=== PATIENT | female | born 2000 ===

== ENCOUNTER 2023-01-17 05:23 | Inpatient (IN) ==
--- NOTE | 2023-01-10 13:59 | Anesthesiology Consultation ---
Date of Service January 10, 2023 Assessment & Plan (1) Encounter for pre-operative examination: Chart Review Chart Review: manager entry initiated -COVID screening: Per PAT nursing assessment on 01/10/23. No known COVID-19 posi tive contacts or current COVID-19 related symptoms. Travel screen negative. Patient is partially vaccinated for Covid. At surgeon discretion if preop Covid testing being done. History Surgery Operation Date: 01/17/23 07:30 Proposed Procedures p Section (Delivery of Baby Through Abdominal Incision) - Trista Holt MD, FACOG Height/Weight Height: 5 ft 9 in Weight: 85.729 kg Allergies Allergy/AdvReac Type Severity Reaction Status Date / Time diphenhydramine Allergy Anaphylaxis Verified 01/10/23 12:42 [From Benadryl] nickel Allergy Rash Verified 01/10/23 13:01 Penicillins Allergy Anaphylaxis Verified 01/10/23 12:42 Medications Home Medications Medication Instructions Recorded Confirmed Last Taken witch molly 20 % topical pads See Rx Instructions topical PRN 12/14/22 01/10/23 Unknown (Preparation H (Witch Molly)) #48 ea ferrous sulfate 1 dose PO QPM 01/10/23 01/10/23 Unknown prenat.vits,julia,vba-lxhi-gippd 1 tab PO QPM 01/10/23 01/10/23 Unknown Past Medical History Medical History (Updated 01/10/23 @ 14:01 by Donna Levy PA-C) Anxiety and depression Bipolar disorder History of abnormal cervical Pap smear History of multiple miscarriages History of seizure as an History of TIA (transient ischemic attack) 2 years ago -- "htn due to emotional stress" Polyhydramnios affecting Varicella vaccination Past Family History Family History Aunt Ovarian cancer Sister Cystic fibrosis age 25 Denies family history of Breast cancer Colorectal cancer Past Surgical History Surgical History S/P section S/P dilatation and curettage Social History Smoking Status: Current every day smoker tobacco type: cigarettes Smoking cigarettes per day: 10 Do You Dip or Chew Tobacco: No Hx Alcohol Use: No Hx Substance Use: No substance use type: does not use Lab Results Anesthesia Preop Results Results Anesthesia Widget: Hgb 10.8 g/dl (12.0-16.0) L 11/23/22 Hct 31.0 % (37.0-47.0) L 11/23/22
--- NOTE | 2023-01-11 13:24 | History & Physical Report ---
Date of Service January 11, 2023 Assessment & Plan (1) Polyhydramnios affecting : (2) Previous delivery affecting , antepartum: Plan Plan repeat . Risks of the procedure were discussed with the patient including infections, bleeding, transfusion, damage to surrounding structures, need for further surgery, injury to the baby, heart attack, blood clot in legs/lungs, . Consent reviewed and signed. History of Present Illness Chief Complaint: presents for repeat c/s. Primary Care Provider: NO PCP Patient is a 22yowf with iup at 39 0/7 weeks who presents for repeat . Estimated Delivery Date Method Current WG LMP: 04/19/22 : 12 Full term: 1 Premature: 0 Total Number of Induced Abortions: 0 Total Number of Spontaneous Abortions: 10 Ectopics: 0 Multiple births: 0 Number of Living Children: 1 and Delivery Plans Prior C/S SCHEDULED FOR 01/24/[address] SMITH C/S RESCHEDULED TO 01/17/[address] ARNETT MA-31 FORM SIGNED-12/28/2022 Current every day vaping (+)GBS urine +Chlamydia/Trich at 28wks *ANAI 8 weeks after tx *Retest at 36wks-Positive at 36wks for CT and Trich. --finished abio 01/10 (baby will need eye ointment after delivery) Polyhydramnios *Weekly DVP at dx *Weekly NSTs at dx *Deliver in 39th week OB Labs: E Blood Type O Positive 08/17/22 Antibody Screen NEGATIVE 08/17/22 Hemoglobin 10.8 g/dl (12.0-16.0) L 11/23/22 Hematocrit 31.0 % (37.0-47.0) L 11/23/22 Mean Corpuscular Volume 84.3 fL (80.0-100.0) 08/17/22 Platelet Count 271 K/uL (130-400) 08/17/22 Rubella IgG Antibody Immune (Immune) 08/17/22 Rapid Plasma Reagin Nonreactive (Nonreactive) 08/17/22 Hepatitis B Surface Antigen. NON-REACTIVE (NON-REACTIVE) 08/17/22 Hepatitis C Antibody (EIA) NON-REACTIVE (NON-REACTIVE) 08/17/22 HIV (1&2) Ag and Ab Confirmation NON-REACTIVE (NON-REACTIVE) 08/17/22 Glucose 1 Hour 50 gm Load 112 mg/dl (70-130) 11/23/22 OB Optional Labs: Chlamydia trachomatis RNA DETECTED (NotDetected) A 12/28/22 Neisseria gonorrhoeae RNA Not Detected (NotDetected) 12/28/22 Labs Reviewed: Declines cf/sma--mln cfdna-low risk--mln Declines msafp--mln' GBS positive Allergies Allergy/AdvReac Type Severity Reaction Status Date / Time diphenhydramine Allergy Anaphylaxis Verified 01/11/23 12:46 [From Benadryl] nickel Allergy Rash Verified 01/11/23 12:46 Penicillins Allergy Anaphylaxis Verified 01/11/23 12:46 Home Medications Medication Instructions Recorded Confirmed Type witch gisell 20 % topical pads See Rx Instructions topical PRN 12/14/22 01/11/23 Rx (Preparation H (Witch Gisell)) #48 ea ferrous sulfate 1 dose PO QPM 01/10/23 01/11/23 History prenat.vits,julia,ahq-sesp-zftmi 1 tab PO QPM 01/10/23 01/11/23 History Patient History Medical History Anxiety and depression Bipolar disorder History of abnormal cervical Pap smear History of multiple miscarriages History of seizure as an History of TIA (transient ischemic attack) 2 years ago -- "htn due to emotional stress" Polyhydramnios affecting Varicella vaccination Surgical History S/P section S/P dilatation and curettage Family History Aunt Ovarian cancer Sister Cystic fibrosis age 25 Denies family history of Breast cancer Colorectal cancer Social History Smoking Status: Current every day smoker Tobacco Type: E-cigarettes / Vaping Cigarettes Per Day: 10; Second Hand Exposure: Yes (boyfriend smokes); Hx Alcohol Use: No Hx Substance Use: No Preferred Language: Wallisian Communication Ability: Effective Starch Treating Assistant Required: No Beliefs That Will Affect Care: None marital status: Legally marital status details: citlalli Mayen (21) [phone] Current Living Situation: Family Current Living Situation Comment: lives with daughter & boyfriend, no pets current occupational status: unemployed Feels Safe at Home: Yes Assistive Devices: Contacts OB History Past Pregnancies Del. Date GA wks Lbr Lgth wt Sex Type del Anes Place Del Prov ? Comment 12/30/16 Aborted-Spontaneous 03/08/17 B Aborted-Spontaneous 05/30/18 Aborted-Spontaneous D&E 11/28/18 Aborted-Spontaneous 05/30/19 Aborted-Spontaneous chemical 09/27/19 Aborted-Spontaneous 12/25/19 Aborted-Spontaneous 01/31/20 38 5-10 F Spi nal Other [facility] N IOL IUGR, distress 06/24/20 Aborted-Spontaneous 04/29/21 Aborted-Spontaneous Physical Exam Constitutional: WD/WN, vitals as above Neck: trachea midline, no thyromegaly Respiratory: normal respiratory effort, lungs clear to auscultation Cardiovascular: RRR, no murmur, no edema Gastrointestinal (Abdomen): soft, gravid, nt Psychiatric: A+Ox3, euthymic affect Coding Level of Care Code None Diagnoses Polyhydramnios affecting O40.9XX0 Previous delivery affecting , antepartum O34.219
[2023-01-17] MEDS ORDERED: LACTATED RINGER'S 1,000 ML IV SCH ×4 (05:30→08:30)
[2023-01-17 05:59] LABS: Basophils # (auto) 0.06 K/uL (0-0.2); Basophils % (auto) 0.5 %; Eosinophils # (auto) 0.19 K/uL (0-0.50); Eosinophils % (auto) 1.5 %; Hematocrit (blood only) 34.1 % (37.0-47.0); Hemoglobin 12.2 g/dl (12.0-16.0); Immature Granulocytes # (auto) 0.16 K/uL (0.01-0.20); Immature Granulocytes % (auto) 1.3 %; Lymphocytes # (auto) 3.86 K/uL (1.2-3.4); Lymphocytes % (auto) 30.7 %; Mean Corpuscular Hgb Conc 35.8 g/dL (32.0-36.0); Mean Corpuscular Volume 86.8 fL (80.0-100.0); Mean Platelet Volume 9.6 fL (9.4-12.4); Monocytes % (auto) 7.1 %; Neutrophils # (auto) 7.42 K/uL (1.40-6.50); Neutrophils % (auto) 58.9 %; Platelet Count 308 K/uL (130-400); RDW Coefficient of Variation 13.2 % (11.5-14.5); RDW Standard Deviation 41.6 fL (36.4-46.3); Red Blood Count 3.93 M/uL (4.20-5.40); White Blood Count 12.59 K/ul (4.8-10.8)
[2023-01-17] MEDS ORDERED: DEXTROSE 5% IV SCH (06:00)
[2023-01-17] MEDS ORDERED: CITRIC ACID/SODIUM CITRATE 15 ML UDC PO SCH (06:00)
[2023-01-17] MEDS ORDERED: CLINDA 900 MG **Premixed Bag IV SCH (06:00)
[2023-01-17] MEDS ORDERED: GENTAMICIN SULFATE IV SCH (06:00)
[2023-01-17] MEDS ORDERED: OXYTOCIN 10 UNITS/ML 10ML VIAL ONE (07:01)
[2023-01-17] MEDS ORDERED: KETOROLAC 30 MG/ML VIAL ONE (07:01)
[2023-01-17] MEDS ORDERED: ONDANSETRON INJ 2 MG/ML 2 ML VIAL ONE (07:01)
[2023-01-17] MEDS ORDERED: PHENYLEPHRINE HCL 10 MG/ML VIAL ONE (07:01)
[2023-01-17] MEDS ORDERED: fentaNYL citrate PF 100 MCG/2 ML VIAL ONE (07:01)
[2023-01-17] MEDS ORDERED: MoRPHine SULFATE PF 1 MG/ML 10 ML AMP/VIAL ONE (07:01)
--- NOTE | 2023-01-17 07:16 | History & Physical Bridge Note ---
Date of Service January 17, 2023 History & Physical Bridge Note I have examined the patient, reviewed the History & Physical and in the interval since the performance of the History & Physical I have noted the following changes of clinical significance: no changes noted
[2023-01-17] MEDS ORDERED: NALOXONE HCL 0.08 MG in SYRINGE 1.8 ML IV PRN (08:05)
[2023-01-17] MEDS ORDERED: ePHEDrine sulfate 50 MG/ML AMP IV PRN (08:05)
[2023-01-17] MEDS ORDERED: LACTATED RINGER'S 500 ML IV PRN (08:05)
[2023-01-17] MEDS ORDERED: ACETAMINOPHEN 1,000 MG/100 ML VIAL IV PRN (08:05)
[2023-01-17] MEDS ORDERED: diphenhydrAMINE 50 MG/ML VIAL IV PRN ×2 (08:05→08:18)
[2023-01-17] MEDS ORDERED: NALOXONE HCL 1 MG in SODIUM CHLORIDE 0.9% 1000ML 1,000 ML IV PRN (08:05)
[2023-01-17] MEDS ORDERED: HYDROmorphone INJ 0.5 MG/0.5 ML SYR IV PRN (08:05)
[2023-01-17] MEDS ORDERED: NALOXONE HCL 0.4 MG/1 ML VIAL/CARP IV PRN (08:05)
[2023-01-17] MEDS ORDERED: PROMETHAZINE HCL 12.5 MG in SODIUM CHLORIDE 0.9% 50 ML IV PRN (08:05)
[2023-01-17] MEDS ORDERED: ONDANSETRON INJ 2 MG/ML 2 ML VIAL IV PRN (08:05)
[2023-01-17] MEDS ORDERED: MoRPHine SULFATE PF 1 MG/ML 10 ML AMP/VIAL INT SPINAL ONE (08:05)
[2023-01-17] MEDS ORDERED: NO NARCOTICS OR SEDATIVES SCH (08:15)
[2023-01-17] MEDS ORDERED: SODIUM CHLORIDE 0.9% 1000ML 1,000 ML IV SCH (08:15)
[2023-01-17] MEDS ORDERED: DC INTRASPINAL MORPHINE SCH (08:15)
[2023-01-17] MEDS ORDERED: DIPHTHERIA/TETANUS/PERTUSSIS 0.5mL SYR/VIAL (Age 7+yrs) IM ONE (08:18)
[2023-01-17] MEDS ORDERED: ACETAMINOPHEN 325 MG TAB PO PRN (08:18)
[2023-01-17] MEDS ORDERED: BENZOCAINE 20% AER SPR 82.5 GM CAN EXT PRN (08:18)
[2023-01-17] MEDS ORDERED: MAGNESIUM HYDROXIDE SUSP 30 ML UDC PO PRN (08:18)
[2023-01-17] MEDS ORDERED: HYDROCORTISONE ACETATE 25 MG SUPP PR PRN (08:18)
[2023-01-17] MEDS ORDERED: SENNA 8.6 MG TAB PO PRN (08:18)
--- NOTE | 2023-01-17 08:18 | Operative Report ---
PG Post Operative Report Pre & Post Diagnosis Operation Date: 01/17/23 07:30 Pre-Op Diagnosis: Inrauterine at term. Desires repeat section. Post-Op Diagnosis: Same as above. Delivery of live male child at 0750. I identified the patient and participated in the time-out.: Yes Procedure Operation Date: 01/17/23 07:30 Actual Procedures p Repeat lower transverse Section (Delivery of Baby Through Abdominal Incision) delivery of live male child at 0750 - Trista Holt MD, FACOG Surgeon Trista Holt MD, FACOG Windows Vmware Administrator Dr. Fitzgerald Estimated Blood Loss 500 Findings Consistent with Post-Op Diagnosis viable male infant in cephalic presentation. normal appearing uterus, tubes, ovaries Fluids 500cc uop--150cc clear, yellow Specimens none Drains moreno Anesthesia Type Spinal Complications none Disposition Accompanied Patient To Recovery: Yes Disposition: L&D Indications Patient is at 39 0/7 weeks who presents for elective, repeat c/s. Description of Procedure The patient was taken to the operating room where she was identified verbally and by bracelet. She was seated on the operating table where a spinal anesthetic was placed by anesthesia. She was then placed in the supine position with a leftward tilt. A Moreno catheter was placed sterilely. the patient was prepped and draped in a normal standard fashion. the anesthetic was tested and found to be adequate. A time-out was held, identifying correct patient, procedure, positioning and preoperative antibiotics. There were no concerns. A Pfannenstiel skin incision was made with a knife and taken down to the underlying layer of fascia with the knife and Bovie electrocautery. Bleeding was attended to with the Bovie. The fascia was incised in the midline with the knife and taken out laterally with scissors. The superior edge of the fascial incision was grasped, elevated and the underlying layer of rectus muscle was taken off bluntly and with scissors. In a similar fashion, the inferior edge of the fascial incision was grasped, elevated and the underlying layer of rectus muscle was taken off bluntly and with scissors. The muscles were bluntly in the midline. The peritoneum was entered bluntly. The incision was then stretched. The bladder blade was placed. The vesicouterine peritoneum was identified, entered with scissors and taken out laterally with scissors. The bladder flap was created digitally A hysterotomy incision was scored with a knife and the incision was stretched superiorly and inferiorly with the microgrinder operator's fingers. The operators hand was placed into the incision and the head was delivered atraumatically. Nuchal cord x 1. The nose and mouth were bulb suctioned. the rest of the was then delivered without difficulty. The nose and mouth were again bulb suctioned. The cord was clamped and cut and the infant was then handed off to the awaiting supervisor fiber locking for drying and attention. Cord blood and segment were obtained. The placenta was Manually extracted. The uterus was exteriorized and cleared of all clot and debris with moistened laparotomy sponges. The hysterotomy incision was repaired in two layers, the first in a running locked layer, the second in an imbricating layer. Hemostasis was noted to be good. Posterior cul-de-sac was irrigated and cleared of all clot and debris. The hysterotomy incision was again inspected and found to be hemostatic. the uterus was reinteriorized. Hysterotomy incision was again inspected and two figure of eight sutures were used for hemostasis. Rectus muscles were reapproximated with several interrupte d stitches of 0 Vicryl. The fascia was then reapproximated with 0 Vicryl starting at the edges and meeting in the midline. The subcuticular tissues were copiously irrigated and bleeding was attended to with cautery. The skin was then closed with 4-0 Vicryl in a subcuticular fashion. All sponge, lap and needle counts correct x 2. Patient taken to the recovery room in stable condition. I attest to the content of the Intraoperative Record and any orders documented therein. Any exceptions are noted below.
[2023-01-17] MEDS: NALBUPHINE HCL INJ 10 MG/ML AMP IV PRN ×2 (08:46→13:46)
--- NOTE | 2023-01-17 09:47 | Anesthesiology Progress Note ---
Date of Service January 17, 2023 Anesthesia Post Procedure Vital Signs Vital Signs: Temp Pulse Resp BP Pulse Ox 01/17/23 09:08 16 01/17/23 08:58 18 01/17/23 08:48 20 01/17/23 08:38 18 01/17/23 08:28 18 01/17/23 08:18 98.1 F 18 01/17/23 09:43 80 98 01/17/23 09:38 84 98 01/17/23 09:33 87 99 01/17/23 09:29 73 121/69 01/17/23 09:28 87 98 01/17/23 09:23 81 98 01/17/23 09:18 80 97 01/17/23 09:19 78 118/64 01/17/23 09:13 80 98 01/17/23 09:10 80 114/74 01/17/23 09:08 80 98 01/17/23 09:03 85 99 01/17/23 08:59 99 H 124/62 01/17/23 08:58 81 98 01/17/23 08:53 87 98 01/17/23 08:50 86 137/64 01/17/23 08:48 87 98 01/17/23 08:43 90 99 01/17/23 08:39 73 111/58 L 01/17/23 08:38 85 98 01/17/23 08:33 75 99 01/17/23 08:30 86 101/73 01/17/23 08:28 84 99 01/17/23 08:23 80 99 01/17/23 08:18 97 01/17/23 08:18 93 H 01/17/23 08:18 78 105/59 L 01/17/23 05:40 99 H 129/79 01/17/23 05:41 98.1 F 20 Pain Intensity Lower Abdomen: Pain Intensity: 3 Transfer of Care Handoff Completed per policy Notes Mental Status: alert / awake / arousable and participated in evaluation Patient Amnestic to Procedure: Yes Nausea / Vomiting: adequately controlled Pain: adequately controlled Airway Patency, RR, SpO2: stable & adequate BP & HR: stable & adequate Hydration State: stable & adequate Neuraxial Anesthesia: was administered and sensory block is resolving Anesthetic Complications: no major complications apparent and Pt Satisfied with anesthetic care
[2023-01-17] MEDS: OXYTOCIN 20 UNITS in LACTATED RINGER'S 1,000 ML IV SCH ×2 (11:26→19:41)
[2023-01-17] MEDS: SIMETHICONE 80 MG CHEW PO SCH ×2 (12:37→19:42)
[2023-01-17] MEDS: KETOROLAC 30 MG/ML VIAL IV PRN ×2 (13:33→20:51)
--- NOTE | 2023-01-17 15:10 | Communication Note ---
Date of Service: January 17, 2023 I heard an overhead code blue call overhead. EMILIE was found unresponsive in the bathroom. He was attended to by appropriate personnel. The patient is now in room 414. Patient is doing well physically. Dressing clean , dry and intact. Patient was moved to the new room and is currently eating as she has passed gas and is hungry. Her niece was currently in the room with her as her other support person is the FOB's mother accompanied him to the ED. Patient is aware the CYS will likely now need to be involved in her case.
[2023-01-17] MEDS ORDERED: DOCUSATE SODIUM 100 MG CAP PO ONE (19:37)
[2023-01-17] MEDS: DOCUSATE SODIUM 100 MG CAP PO SCH (19:42)
[2023-01-17] MEDS: NICOTINE 21 MG/24 HR TDSY TD SCH (19:42)
[2023-01-18] MEDS ORDERED: ONDANSETRON INJ 2 MG/ML 2 ML VIAL IV PRN (02:06)
[2023-01-18] MEDS ORDERED: MEPERIDINE HCL 50 MG/ML CARP IV PRN (02:06)
[2023-01-18] MEDS ORDERED: KETOROLAC 30 MG/ML VIAL IV PRN (02:06)
[2023-01-18] MEDS ORDERED: PROMETHAZINE HCL 25 MG in SODIUM CHLORIDE 0.9% 50 ML IV PRN (02:06)
--- NOTE | 2023-01-18 06:46 | Obstetrical Progress Note ---
Date of Service January 18, 2023 Assessment & Plan (1) Encounter for care after hospital delivery: (2) GBS carrier: (3) Current every day vaping: Plan - Overall, feeling well and eating well today - feeding going well without concern - Urinating and passing gas appropriately - Ambulating well in room - Pain controlled w/ Ibuprofen - Hgb 12/2 on 01/17 - Vitals stable and wnl - Routine PP care progressing well - Anticipate discharge @ 48-72 hours PP - Recommending f/u outpatient in 6 weeks Admission and Anticipated Discharge Date Admission Date: January 17, 2023 Supervising Physician Co-Signing Physician Notes Resident Physician Supervision Note: I interviewed and examined the patient. Discussed with Dr. Garvin and agree with findings and plan as documented in the note. Any exceptions or clarifications are listed here: Doing well overall. Her steris are saturated but no active bleeding from the incision. Physically doing well. Documented By: Trista Holt MD, FACOG Subjective Patient is a 22F who is POD #1 following delivery at 39 0/7. She reports feeling well overall this morning. - Ambulation - well throughout room - Voiding/Barrow - independent voids, no dysuria or pressure (Barrow removed AM) - Gas/Stool - passing gas, no bowel movement - Diet - regular, no nausea or emesis - Lochia - diminishing, light amount - Feeding Type - breast feeding - Pain Level - 1/10, controlled with Ibuprofen Review of Systems - Denies fever, chills, sweats - Denies shortness of breath, difficulty breathing, chest pain, palpitations, chest pressure. - Denies breast pain. - Denies dysuria. - Denies headache or changes in vision. Physical Exam Physical Exam: General: Alert, oriented. No acute distress. Cardiac: RRR, normal S1/S2, no murmurs/rubs/gallops. Respiratory: Non-labored, CTAB, no wheezes/rales/rhonchi. Symmetric chest rise. Abdomen: Soft, nontender, nondistended. Bowel sounds present. Incision clean/dry w/o erythema or purulence. Blood on surgical bandage (removed AM) Uterus: Uterine fundus firm, palpable 2 cm below umbilicus. Lower Extremities: No lower extremity edema or swelling. No deep calf pain. Lewis's negative bilaterally. Results & Data Vital Signs (Past 12 Hours) Vital Signs Temp Pulse Resp BP BP Pulse Ox O2 Del Method 01/18/23 03:45 36.8 C 82 18 133/94 98 Room Air 01/18/23 02:00 16 98 01/18/23 01:00 18 98 01/18/23 00:15 18 97 01/17/23 23:15 18 98 01/17/23 22:59 37 C 87 18 118/72 99 Room Air 01/17/23 22:30 18 97 01/17/23 20:30 18 98 01/17/23 21:30 18 97 01/17/23 19:30 18 98 01/17/23 19:08 36.8 C 76 18 105/65 98 Room Air Resident Activity Tracking Resident Involvement: Resident Care Provided Care Provided: OB Delivery
[2023-01-18 06:56] LABS: Basophils # (auto) 0.04 K/uL (0-0.2); Basophils % (auto) 0.4 %; Eosinophils # (auto) 0.15 K/uL (0-0.50); Eosinophils % (auto) 1.6 %; Hematocrit (blood only) 29.3 % (37.0-47.0); Immature Granulocytes # (auto) 0.08 K/uL (0.01-0.20); Immature Granulocytes % (auto) 0.8 %; Lymphocytes # (auto) 1.96 K/uL (1.2-3.4); Lymphocytes % (auto) 20.5 %; Mean Corpuscular Hemoglobin 30.2 pg (25.0-34.0); Mean Corpuscular Hgb Conc 34.1 g/dL (32.0-36.0); Mean Corpuscular Volume 88.5 fL (80.0-100.0); Mean Platelet Volume 9.6 fL (9.4-12.4); Monocytes # (auto) 0.66 K/uL (0.11-0.59); Monocytes % (auto) 6.9 %; Neutrophils # (auto) 6.69 K/uL (1.40-6.50); Neutrophils % (auto) 69.8 %; Platelet Count 216 K/uL (130-400); RDW Coefficient of Variation 13.2 % (11.5-14.5); RDW Standard Deviation 43.1 fL (36.4-46.3); Red Blood Count 3.31 M/uL (4.20-5.40); White Blood Count 9.58 K/ul (4.8-10.8)
[2023-01-18] MEDS: DOCUSATE SODIUM 100 MG CAP PO SCH ×2 (07:51→20:25)
[2023-01-18] MEDS: SIMETHICONE 80 MG CHEW PO SCH ×4 (07:51→20:25)
[2023-01-18] MEDS: PRENATAL VITAMIN 1 TAB PO SCH (07:51)
[2023-01-18] MEDS: IBUPROFEN 600 MG TAB PO PRN ×4 (07:51→23:13)
[2023-01-18] MEDS: FERROUS SULFATE 325 MG TAB PO SCH (07:52)
[2023-01-18] MEDS: oxyCODONE/ACETAMINOPHEN 5mg/325mg TAB PO PRN ×4 (07:52→23:13)
[2023-01-18] MEDS ORDERED: bisacodyL 5 MG TABEC PO SCH (20:00)
[2023-01-18] MEDS: NICOTINE 21 MG/24 HR TDSY TD SCH (20:25)
[2023-01-19] MEDS ORDERED: SODIUM CHLORIDE 0.65% NA SOLN 45 ML (OCEAN) ONE (02:32)
[2023-01-19] MEDS: IBUPROFEN 600 MG TAB PO PRN ×2 (04:00→09:29)
[2023-01-19] MEDS: oxyCODONE/ACETAMINOPHEN 5mg/325mg TAB PO PRN ×2 (04:00→09:30)
[2023-01-19 06:21] LABS: Hematocrit (blood only) 28.3 % (37.0-47.0); Hemoglobin 9.9 g/dl (12.0-16.0)
--- NOTE | 2023-01-19 06:34 | Obstetrical Progress Note ---
Date of Service January 19, 2023 Assessment & Plan (1) Encounter for care after hospital delivery: (2) GBS carrier: (3) Current every day vaping: Plan - Overall, feeling well and eating well today - feeding going well without concern - Urinating and passing gas appropriately - Ambulating well in room - Pain controlled w/ Ibuprofen and Percocet - Hgb 12.2 on 4/3, 9.9 on 4/5 - Vitals stable and wnl - Routine PP care progressing well - Anticipate discharge @ 48-72 hours PP - Recommending f/u outpatient in 6 weeks Admission and Anticipated Discharge Date Admission Date: January 17, 2023 Supervising Physician Co-Signing Physician Notes Resident Physician Supervision Note: I was present with Dr. Mata during the history and exam. I discussed the case with the resident and agree with the findings and plan as documented in the note. Any exceptions or clarifications are listed here: [None] Documented By: Semaj Corona MD, FACOG Subjective Patient is a 22F who is POD #2 following delivery at 39 0/7. She reports feeling well overall this morning. - Ambulation - well throughout room - Voiding/Barrow - independent voids, no dysuria or pressure (Barrow removed AM) - Gas/Stool - passing gas, no bowel movement - Diet - regular, no nausea or emesis - Lochia - diminishing, light/none amount - Feeding Type - breast feeding - Pain Level - 3/10, controlled with Ibuprofen Review of Systems - Denies fever, chills, sweats - Denies shortness of breath, difficulty breathing, chest pain, palpitations, chest pressure. - Denies breast pain. - Denies dysuria. - Denies headache or changes in vision. Physical Exam Physical Exam: General: Alert, oriented. No acute distress. Cardiac: RRR, normal S1/S2, no murmurs/rubs/gallops. Respiratory: Non-labored, CTAB, no wheezes/rales/rhonchi. Symmetric chest rise. Abdomen: Soft, nontender, nondistended. Bowel sounds present. Incision clean/dry w/o erythema or purulence. Saturated steri strips, no active bleeding Uterus: Uterine fundus firm, palpable 2 cm below umbilicus. Lower Extremities: No lower extremity edema or swelling. No deep calf pain. Lewis's negative bilaterally. Results & Data Vital Signs (Past 12 Hours) Vital Signs Temp Pulse Pulse Resp BP Pulse Ox O2 Del Method 01/18/23 23:20 36.4 C L 84 18 119/74 01/18/23 20:20 36.4 C L 83 18 105/70 97 Room Air Resident Activity Tracking Resident Involvement: Resident Care Provided Care Provided: OB Delivery
[2023-01-19] MEDS ORDERED: bisacodyL 10 MG SUPP PR PRN (08:19)
[2023-01-19] MEDS: PRENATAL VITAMIN 1 TAB PO SCH (09:28)
[2023-01-19] MEDS: FERROUS SULFATE 325 MG TAB PO SCH (09:28)
[2023-01-19] MEDS: DOCUSATE SODIUM 100 MG CAP PO SCH (09:29)
[2023-01-19] MEDS: SIMETHICONE 80 MG CHEW PO SCH (09:29)
--- NOTE | 2023-01-20 13:23 | Discharge Summary ---
Date of Service January 20, 2023 Admission HPI Per Admitting Provider Patient is a 22yowf with iup at 39 0/7 weeks who presents for repeat . Estimated Delivery Date Method Current WG LMP: 04/19/22 : 12 Full term: 1 Premature: 0 Total Number of Induced Abortions: 0 Total Number of Spontaneous Abortions: 10 Ectopics: 0 Multiple births: 0 Number of Living Children: 1 and Delivery Plans Prior C/S SCHEDULED FOR 01/24/[address] SMITH C/S RESCHEDULED TO 01/17/[address] ARNETT MA-31 FORM SIGNED-12/28/2022 Current every day vaping (+)GBS urine +Chlamydia/Trich at 28wks *ANAI 8 weeks after tx *Retest at 36wks-Positive at 36wks for CT and Trich. --finished abio 01/10 (baby will need eye ointment after delivery) Polyhydramnios *Weekly DVP at dx *Weekly NSTs at dx *Deliver in 39th week OB Labs: Blood Type O PositiveB 08/17/22 Antibody Screen NEGATIVE 08/17/22 Hemoglobin 10.8 g/dl (12.0-16.0) L 11/23/22 Hematocrit 31.0 % (37.0-47.0) L 11/23/22 Mean Corpuscular Volume 84.3 fL (80.0-100.0) 08/17/22 Platelet Count 271 K/uL (130-400) 08/17/22 Rubella IgG Antibody Immune (Immune) 08/17/22 Rapid Plasma Reagin Nonreactive (Nonreactive) 08/17/22 Hepatitis B Surface Antigen. NON-REACTIVE (NON-REACTIVE) 08/17/22 Hepatitis C Antibody (EIA) NON-REACTIVE (NON-REACTIVE) 08/17/22 HIV (1&2) Ag and Ab Confirmation NON-REACTIVE (NON-REACTIVE) 08/17/22 Glucose 1 Hour 50 gm Load 112 mg/dl (70-130) 11/23/22 OB Optional Labs: Chlamydia trachomatis RNA DETECTED (NotDetected) A 12/28/22 Neisseria gonorrhoeae RNA Not Detected (NotDetected) 12/28/22 Labs Reviewed: Declines cf/sma--mln cfdna-low risk--mln Declines msafp--mln' GBS positive Discharge Data Consultations 01/17/23 05:27 Consult Anesthesiology Stat Procedures Performed Operation Date: 01/17/23 07:30 Actual Procedures p Section (Delivery of Baby Through Abdominal Incision) delivery of live male child at 0750 - Trista Arnett MD, FACOG Hospital Course (1) Encounter for care after hospital delivery: (2) Previous delivery affecting , antepartum: Plan Patient was admitted and underwent repeat LTCS without complications. EBL--500cc. Her postop course was uncomplicated--tolerated a regular diet, passes gas, ambulated without difficulty, voided after removal of her catheter. ON POD 0, the FOB was found unresponsive and code blue initiated. He was revived and sent to the ED. CYS were then involved in patient care and per Pedro Luis cerna CYS, patient ok to be d/c home with the baby. This d/c occurred on P OD 2. She will return in 6 weeks for pp check. Discharge h/h 9.9/28.3 Coding Level of Care Code None Diagnoses Encounter for care after hospital delivery Z39.2 Previous delivery affecting , antepartum O34.219
--- NOTE | 2023-01-25 07:14 | Coding Query ---
CODING QUERY To promote full compliance with coding requirements relating to patient care, provider participation is requested in all cases of green building materials distributor uncertainty. Please assist us with the question(s) below: Coding Question(s): The H&P and DS document, "+Chlamydia/Trich at 28wks *ANAI 8 weeks after tx *Retest at 36wks-Positive at 36wks for CT and Trich. --finished abio 01/10 (baby will need eye ointment after delivery)". Please specify below, regarding the Chlamydia/Trich: ( X) Chlamydia/Trich were sexually transmitted infections ( ) Chlamydia/Trich were Non-sexually transmitted infections ( ) Other: Please Specify Physician's Response(s): Thank you Soraida Mike Principal Diagnosis: "that condition established after study, to be chiefly responsible for occasioning the admission of the patient to the hospital for care." Co-Existing Principal Diagnosis: "when two or more diagnoses equally meet the criteria for principal diagnosis as determined by the circumstances of admission, diagnostic work up, and/or therapy provided, and the Alphabetic Index, Tabular List, or another coding guideline does not provide sequencing direction, any one of the diagnoses may be sequenced first." "When the physician has documented what appears to be a current diagnosis in the body of the record, but has not included the diagnosis in the final diagnostic statement, the physician should be asked whether the diagnosis should be added." (Source Coding [facility] 2 QTR90. p3-4) HENRY
== END 2023-01-19 12:30 | disposition home or self-care (01) | DRG 787 ==
LOC: 4S1 05:23 → 4E2 11:28 → EDSTATUS 01-24 07:30